=== PATIENT | male | born 1955 | race Caucasian/White ===

== ENCOUNTER → 2016-09-23 | Outpatient (CLI) | payer OTHER ==
--- NOTE | 2016-09-23 08:12 | CT ---
EXAMINATION TYPE: CT sinus wo con DATE OF EXAM: 09/23/2016 7:30 AM COMPARISON: NONE HISTORY: vertigo, sinusitis CT DLP: 610.[address] of the paranasal sinuses was performed in the axial and coronal planes. Bone and soft tissue settings are submitted. There is mild mucosal thickening noted to involve the left-sided maxillary sinus and scattered ethmoi d air cells. The right maxillary sinus, sphenoid sinus and frontal sinuses are well-aerated. No air-f luid levels are identified. The osteal meatal units are patent bilaterally. The nasal septum is midline. No bony destructive changes are seen within the field of view. IMPRESSION: Mild chronic sinusitis.
== END | disposition home or self-care (01) ==
LOC: RADCTMAIN 07:10
PROVIDERS: ATTEND Otolaryngology
DX: J32.9 Chronic sinusitis, unspecified (principal)
CPT/HCPCS: 70486

== ENCOUNTER 2016-10-08 13:28 | Emergency (ER) | payer OTHER ==
[2016-10-08 13:46] VITALS: TEMP 98.2
[2016-10-08 13:56] LABS: Glucose,Whole Blood 97 mg/dL (75-99)
--- NOTE | 2016-10-08 14:06 | ED ---
General Adult HPI - General Chief complaint: Dizziness Stated complaint: CVA symptoms Time Seen by Provider: 10/08/16 13:45 Source: patient, RN notes reviewed Mode of arrival: ambulatory Limitations: no limitations - History of Present Illness Initial comments: This is a 60-year-old male who presents emergency Department complaining of some tingling to the left side of his face and a vertigo sensation. Patient states that vertigo for many years. Over the last month it has been a little bit more intense than normal. Patient states the tingling to the side of his face his been ongoing for a few weeks and he thought it was a tooth infection that he had but that has been resolved so he is not sure why he still has some tingling. Patient denies any rashes. Patient denies any weakness or actual numbness. Patient denies any chest pain or palpitations. Patient denies any fevers chills or cough. Patient denies abdominal pain patient denies nausea vomiting or diarrhea. Patient denies any injury or trauma. - Related Data Home Medications Medication Instructions Recorded Confirmed Aspirin 81 mg PO DAILY 05/09/16 10/08/16 Atorvastatin [Lipitor] 40 mg PO DAILY 10/08/16 10/08/16 Nebivolol HCl [Bystolic] 10 mg PO HS 10/08/16 10/08/16 amLODIPine/VALSARTAN [Exforge 1 tab PO DAILY 10/08/16 10/08/16 10-320 mg Tablet] Previous Rx's Medication Instructions Recorded Meclizine [Antivert] 25 mg PO TID #20 tab 10/08/16 Allergies Allergy/AdvReac Type Severity Reaction Status Date / Time No Known Allergies Allergy Verified 10/08/16 14:06 Review of Systems ROS Statement: Those systems with pertinent positive or pertinent negative responses have been documented in the HPI. ROS Other: All systems not noted in ROS Statement are negative. Past Medical History Additional Past Medical History / Comment(s): See Dr Simon's H&P History of Any Multi-Drug Resistant Organisms: None Reported Additional Past Surgical History / Comment(s): Loop Monitor Past Anesthesia/Blood Transfusion Reactions: No Reported Reaction Additional Past Anesthesia/Blood Transfusion Reaction / Comment(s): no hx blood transfusion Type of Cardiac Device: Loop Device Placement Date:: 2011 Past Psychological History: No Psychological Hx Reported Smoking Status: Former smoker Past Alcohol Use History: Occasional Additional Past Alcohol Use History / Comment(s): quit smoking 1998,smoked for approx 20 yrs 1ppd Past Drug Use History: None Reported - Past Family History Mother Additional Family Medical History / Comment(s): heart problems Father Additional Family Medical History / Comment(s): heart problems General Exam - General Exam Comments Initial Comments: GENERAL: Patient is well-developed and well-nourished. Patient is nontoxic and well- hydrated and is in no acute distress. ENT: Neck is soft and supple. No significant lymphadenopathy is noted. Oropharynx is clear. Moist mucous membranes. Neck has full range of motion without eliciting any pain. EYES: The sclera were anicteric and conjunctiva were pink and moist. Extraocular movements were intact and pupils were equal round and reactive to light. Eyelids were unremarkable. PULMONARY: Unlabored respirations. Good breath sounds bilaterally. No audible rales rhonchi or wheezing was noted. CARDIOVASCULAR: Patient is tachycardic at 115 bpm. ABDOMEN: Soft and nontender with normal bowel sounds. No palpable organomegaly was noted. There is no palpable pulsatile mass. SKIN: Skin is clear with no lesions or rashes and otherwise unremarkable. NEUROLOGIC: Patient is alert and oriented x3. Cranial nerves II through XII are grossly intact. Motor and sensory are also intact. Normal speech, volume and content. Symmetrical smile. Cerebellar exam grossly intact. MUSCULOSKELETAL: Normal extremities with adequate strength and full range of motion. No lower extremity swelling or edema. No calf tenderness. LYMPHATICS: No significant lymphadenopathy is noted PSYCHIATRIC: Normal psychiatric evaluation. Normal interpersonal interactions appears functionally intact in deals appropriately with others. No signs of depression. No signs of anxiety. Limitations: no limitations Course Vital Signs 10/08/16 10/08/16 10/08/16 13:42 13:55 14:10 Temperature 98.2 F Pulse Rate 130 H 108 H 92 Respiratory 20 20 20 Rate Blood Pressure 197/96 170/108 156/103 O2 Sat by Pulse 97 99 99 Oximetry Medical Decision Making - Medical Decision Making EKG shows a sinus tachycardia at 108 bpm [place] interval is 148 QRS is 98 QT interval 338 QTC is 452. Patient's EKG shows no ST segment elevation or depression or T-wave abdomen is noted I will begin the room to reevaluate the patient has heart rate was at 70 beats a minute. Patient states he was asymptomatic at this time he got up in bed moved around stated he did not feel any more vertigo. Patient states it is same symptoms he's had in the past. - Lab Data Result diagrams: 10/08/16 14:25 10/08/16 14:25 Lab Results 10/08/16 10/08/16 10/08/16 Range/Units 13:54 14:25 14:25 WBC 5.7 (3.8-10.6) k/uL RBC 4.86 (4.30-5.90) m/uL Hgb 15.2 (13.0-17.5) gm/dL Hct 44.8 (39.0-53.0) % MCV 92.1 (80.0-100.0) fL MCH 31.2 (25.0-35.0) pg MCHC 33.9 (31.0-37.0) g/dL RDW 12.9 (11.5-15.5) % Plt Count 191 (150-450) k/uL Neutrophils % 73 % Lymphocytes % 15 % Monocytes % 8 % Eosinophils % 1 % Basophils % 1 % Neutrophils # 4.1 (1.3-7.7) k/uL Lymphocytes # 0.8 L (1.0-4.8) k/uL Monocytes # 0.5 (0-1.0) k/uL Eosinophils # 0.1 (0-0.7) k/uL Basophils # 0.0 (0-0.2) k/uL PT (9.0-12.0) sec INR (<1.1) APTT (22.0-30.0) sec Sodium (137-145) mmol/L Potassium (3.5-5.1) mmol/L Chloride (98-107) mmol/L Carbon Dioxide (22-30) mmol/L Anion Gap mmol/L BUN (9-20) mg/dL Creatinine (0.66-1.25) mg/dL Est GFR (MDRD) Af Amer (>60 ml/min/1.73 sqM) Est GFR (MDRD) Non-Af (>60 ml/min/1.73 sqM) Glucose (74-99) mg/dL POC Glucose (mg/dL) 97 (75-99) mg/dL POC Glu [employer] Worker ID Marsha Eric Calcium (8.4-10.2) mg/dL Magnesium (1.6-2.3) mg/dL Total Bilirubin (0.2-1.3) mg/dL AST (17-59) U/L ALT (21-72) U/L Alkaline Phosphatase (38-126) U/L Total Creatine Kinase 155 (55-170) U/L CK-MB (CK-2) 2.2 (0.0-2.4) ng/mL CK-MB (CK-2) Rel Index 1.4 Troponin I <0.012 (0.000-0.034) ng/mL Total Protein (6.3-8.2) g/dL Albumin (3.5-5.0) g/dL 10/08/16 10/08/16 Range/Units 14:25 14:25 WBC (3.8-10.6) k/uL RBC (4.30-5.90) m/uL Hgb (13.0-17.5) gm/dL Hct (39.0-53.0) % MCV (80.0-100.0) fL MCH (25.0-35.0) pg MCHC (31.0-37.0) g/dL RDW (11.5-15.5) % Plt Count (150-450) k/uL Neutrophils % % Lymphocytes % % Monocytes % % Eosinophils % % Basophils % % Neutrophils # (1.3-7.7) k/uL Lymphocytes # (1.0-4.8) k/uL Monocytes # (0-1.0) k/uL Eosinophils # (0-0.7) k/uL Basophils # (0-0.2) k/uL PT 10.7 (9.0-12.0) sec INR 1.1 (<1.1) APTT 20.9 L (22.0-30.0) sec Sodium 141 (137-145) mmol/L Potassium 4.1 (3.5-5.1) mmol/L Chloride 105 (98-107) mmol/L Carbon Dioxide 27 (22-30) mmol/L Anion Gap 9 mmol/L BUN 13 (9-20) mg/dL Creatinine 0.87 (0.66-1.25) mg/dL Est GFR (MDRD) Af Amer >60 (>60 ml/min/1.73 sqM) Est GFR (MDRD) Non-Af >60 (>60 ml/min/1.73 sqM) Glucose 101 H (74-99) mg/dL POC Glucose (mg/dL) (75-99) mg/dL POC Glu [employer] Worker ID Calcium 9.4 (8.4-10.2) mg/dL Magnesium 1.7 (1.6-2.3) mg/dL Total Bilirubin 0.6 (0.2-1.3) mg/dL AST 33 (17-59) U/L ALT 48 (21-72) U/L Alkaline Phosphatase 71 (38-126) U/L Total Creatine Kinase (55-170) U/L CK-MB (CK-2) (0.0-2.4) ng/mL CK-MB (CK-2) Rel Index Troponin I (0.000-0.034) ng/mL Total Protein 7.0 (6.3-8.2) g/dL Albumin 4.1 (3.5-5.0) g/dL Disposition Clinical Impression: Vertigo Disposition: HOME SELF-CARE Condition: Good Instructions: Vertigo (ED) Prescriptions: Meclizine [Antivert] 25 mg PO TID #20 tab Referrals: Jomar Rowland MD [Primary Care Provider] - 1-2 days Time of Disposition: 15:36
[2016-10-08] MEDS ORDERED: DIAZEPAM 5 MG/ML 2 ML SYRINGE IVP STA (14:07)
[2016-10-08] MEDS ORDERED: MECLIZINE 25 MG TAB PO STA (14:07)
[2016-10-08 14:42] LABS: Basophils % (A) 1 %; CH 30.8; CHCM 33.6; Eosinophils # (A) 0.1 k/uL (0-0.7); Eosinophils % (A) 1 %; HCT 44.8 % (39.0-53.0); HDW 2.38; HGB 15.2 gm/dL (13.0-17.5); Luc # (Auto) 0.11; Luc % (Auto) 2; Lymphocytes # (A) 0.8 k/uL (1.0-4.8); Lymphocytes % (A) 15 %; MCH 31.2 pg (25.0-35.0); MCHC 33.9 g/dL (31.0-37.0); MCV 92.1 fL (80.0-100.0); Mean Platelet Volume 7.2; Monocytes # (A) 0.5 k/uL (0-1.0); Monocytes % (A) 8 %; Neutrophils # (A) 4.1 k/uL (1.3-7.7); Neutrophils % (A) 73 %; RBC 4.86 m/uL (4.30-5.90); RDW 12.9 % (11.5-15.5); WBC 5.7 k/uL (3.8-10.6); WBC (Perox) 5.43
[2016-10-08 14:50] LABS: ALT 48 U/L (21-72); AST 33 U/L (17-59); Alkaline Phosphatase 71 U/L (38-126); Anion Gap 9 mmol/L; Blood Urea Nitrogen 13 mg/dL (9-20); Calcium 9.4 mg/dL (8.4-10.2); Carbon Dioxide 27 mmol/L (22-30); Chloride 105 mmol/L (98-107); Glucose 101 mg/dL (74-99); Magnesium 1.7 mg/dL (1.6-2.3); Non-African American GFR(MDRD) >60 (>60 ml/min/1.73 sqM); Potassium 4.1 mmol/L (3.5-5.1); Sodium 141 mmol/L (137-145); Total Bilirubin 0.6 mg/dL (0.2-1.3)
[2016-10-08 14:54] LABS: INR 1.1 (<1.1); Prothrombin Time 10.7 sec (9.0-12.0)
[2016-10-08 14:56] LABS: Partial Thromboplastin Time 20.9 sec (22.0-30.0)
--- NOTE | 2016-10-08 14:57 | CT ---
EXAMINATION TYPE: CT brain wo con DATE OF EXAM: 10/08/2016 2:46 PM COMPARISON: NONE HISTORY: Pt states of left side facial numbness. CT DLP: 975.[address] of the brain was performed. The ventricles, basal cisterns and sulci overlying the cerebral convexities demonstrate mild enlargem ent. There is no evidence for intracranial hemorrhage or sulcal effacement. There is decreased attenuation about the periventricular white matter and deep white matter of both c erebral hemispheres, compatible with chronic small vessel ischemia. Differential diagnosis does inclu de demyelination. No mass effects are seen.No midline shift. Osseous calvarium is intact. If symptoms persist consider MRI. IMPRESSION: 1. Age related atrophic and chronic small vessel ischemic change without acute intracranial process s een at this time.
--- NOTE | 2016-10-08 15:01 | XR ---
EXAMINATION TYPE: XR chest 2V DATE OF EXAM: 10/08/2016 2:50 PM COMPARISON: Prior chest x-ray March 28, 2012. HISTORY: Chest pain and facial numbness. TECHNIQUE: Frontal and lateral views of the chest are obtained. FINDINGS: There is no focal air space opacity, pleural effusion, or pneumothorax seen. The cardiac silhouette size is within normal limits. Atherosclerotic change in aortic knob is redemonstrated. T he osseous structures are intact. IMPRESSION: No acute cardiopulmonary process. No significant change from prior.
[2016-10-08 15:08] LABS: Creatine Kinase 155 U/L (55-170)
[2016-10-08 15:22] LABS: Creatine Kinase MB 2.2 ng/mL (0.0-2.4); Troponin I <0.012 ng/mL (0.000-0.034)
[2016-10-08 16:28] VITALS: BP 154/84; PULSE 74; RESP 18
== END 2016-10-08 16:20 | disposition home or self-care (01) ==
LOC: EC 13:28
DX: R42 Dizziness and giddiness (principal); R00.0 Tachycardia, unspecified; R20.2 Paresthesia of skin; Z87.891 Personal history of nicotine dependence; Z79.82 Long term (current) use of aspirin; Z79.899 Other long term (current) drug therapy
CPT/HCPCS: 36415; 93005; 80053; 82550; 82553; 83735; 84484; 85025; 85610; 85730; 71020; 70450; 99284; 96374; J3360

== ENCOUNTER → 2016-12-19 | Outpatient (CLI) | payer OTHER ==
[2016-12-19 16:49] LABS: Blood Urea Nitrogen 15 mg/dL (9-20); Non-African American GFR(MDRD) >60 (>60 ml/min/1.73 sqM)
== END ==
LOC: RADMRIMAIN 16:22
PROVIDERS: ATTEND Nurse Practitioner Acute Care
DX: Z53.9 Procedure and treatment not carried out, unspecified reason (principal)
CPT/HCPCS: 36415; 82565; 84520